=== PATIENT | female | born 1975 | race Caucasian/White ===

== ENCOUNTER → 2017-04-16 | Outpatient (CLI) | payer OTHER ==
[~2017-04-16] MED LIST: LORTAB 5/500 501 TAB PO; NO HOME MEDICATIONS; PHENTERMINE15 MG PO
== END ==
LOC: MC.RAD 07:12
DX: Z12.31 Encounter for screening mammogram for malignant neoplasm of breast (principal)

== ENCOUNTER → 2017-04-20 | Outpatient (CLI) | payer OTHER | LOC: COL.RAD 13:23 | DX: D25.9 Leiomyoma of uterus, unspecified (principal); N85.8 Other specified noninflammatory disorders of uterus; N85.4 Malposition of uterus ==

== ENCOUNTER → 2017-07-30 | Outpatient (CLI) | payer OTHER | LOC: COL.RAD 10:16 | DX: N83.292 Other ovarian cyst, left side (principal); D25.9 Leiomyoma of uterus, unspecified ==

== ENCOUNTER → 2017-08-13 | Outpatient (CLI) | payer OTHER | LOC: COL.RAD 14:00 | DX: N83.209 Unspecified ovarian cyst, unspecified side (principal) ==

== ENCOUNTER → 2017-08-31 | Outpatient (CLI) | payer OTHER | LOC: COL.RAD 13:52 | DX: N83.201 Unspecified ovarian cyst, right side (principal) ==

== ENCOUNTER → 2017-09-14 | Outpatient (CLI) | payer OTHER | LOC: COL.RAD 13:57 | DX: N83.02 Follicular cyst of left ovary (principal); N83.01 Follicular cyst of right ovary ==

== ENCOUNTER → 2017-09-30 | Outpatient (CLI) | payer OTHER | LOC: COL.RAD 14:42 | DX: N83.01 Follicular cyst of right ovary (principal); D25.9 Leiomyoma of uterus, unspecified ==

== ENCOUNTER → 2017-10-29 | Outpatient (CLI) | payer OTHER | LOC: COL.RAD 15:24 | DX: N83.02 Follicular cyst of left ovary (principal); N85.4 Malposition of uterus; N85.8 Other specified noninflammatory disorders of uterus; N97.9 Female infertility, unspecified ==

== ENCOUNTER → 2017-12-28 | Outpatient (CLI) | payer OTHER | LOC: COL.RAD 14:35 | DX: N83.292 Other ovarian cyst, left side (principal); D25.9 Leiomyoma of uterus, unspecified ==

== ENCOUNTER → 2018-05-17 | Outpatient (CLI) | payer OTHER | LOC: MC.RAD 14:08 | DX: Z12.31 Encounter for screening mammogram for malignant neoplasm of breast (principal) ==

== ENCOUNTER → 2019-05-25 | Outpatient (CLI) | payer OTHER | LOC: MC.RAD 07:00 | DX: Z12.31 Encounter for screening mammogram for malignant neoplasm of breast (principal) ==

== ENCOUNTER → 2020-05-28 | Outpatient (CLI) | payer OTHER | LOC: MC.RAD 07:50 | DX: Z12.31 Encounter for screening mammogram for malignant neoplasm of breast (principal) ==

== ENCOUNTER → 2021-06-02 | Outpatient (CLI) | payer OTHER | LOC: MC.RAD 07:00 | DX: Z12.31 Encounter for screening mammogram for malignant neoplasm of breast (principal) ==

== ENCOUNTER → 2023-03-24 | Outpatient (CLI) | payer OTHER | LOC: MC.RAD 13:54 | DX: Z12.31 Encounter for screening mammogram for malignant neoplasm of breast (principal) ==

== ENCOUNTER → 2024-04-26 | Outpatient (CLI) | payer OTHER | LOC: MC.RAD 06:55 | DX: Z12.31 Encounter for screening mammogram for malignant neoplasm of breast (principal) ==